=== PATIENT | female | born 1965 | race Two or more races ===

== ENCOUNTER 2024-03-12 17:44 | Emergency (ER) | payer MEDICAID, OTHER ==
[~2024-03-12] VITALS: Ht 160 cm; Wt 61.6 kg
[2024-03-12] MEDS ORDERED: ACET500T58 PO (21:52)
[2024-03-12] MEDS ORDERED: PRED10TA PO (21:52)
[2024-03-12] MEDS ORDERED: AMOX875T4 PO (21:52)
[2024-03-12] MEDS: DexAMETHasone SOD PHOS 10MG/1ML VIAL INJ IM ONE (22:28)
[2024-03-12] MEDS: cefTRIAXone SOD 1,000 MG VL IM ONE (22:28)
[2024-03-12 23:07] VITALS: BP 122/61; PULSE 72; RESP 16; TEMP 98.6; O2SAT 97
== END 2024-03-12 23:11 | disposition home or self-care (01) ==
LOC: ER 17:44
DX: J20.9 Acute bronchitis, unspecified (principal); I10 Essential (primary) hypertension; E11.9 Type 2 diabetes mellitus without complications; E78.5 Hyperlipidemia, unspecified
CPT/HCPCS: 71046; 96372; 99284; J0696; J1100

== ENCOUNTER 2024-06-25 23:52 | Emergency (ER) | payer MEDICAID ==
[~2024-06-25] VITALS: Ht 160 cm; Wt 61.2 kg
[~2024-06-25 23:52] MED LIST: ACET500T58 PO; AMOX875T4 PO; PRED10TA PO
[2024-06-26 02:01] LABS: Urine Bacteria None Seen /hpf (None Seen)
[2024-06-26 02:10] VITALS: BP 127/33; PULSE 57; RESP 13; TEMP 97.5; O2SAT 99
[2024-06-26 02:11] LABS: Basophils # (auto) 0 10 ^3/uL (0-0.2); Basophils % (auto) 0.5 % (0.0-2.0); Eosinophils # (auto) 0.2 10 ^3/uL (0-0.8); Eosinophils % (auto) 2.3 % (0.0-7.0); Hematocrit 39.6 % (36.0-46.0); Hemoglobin 13.3 g/dL (12.2-16.2); Lymphocytes % (auto) 28.6 % (10.0-50.0); Mean Corpuscular Hemoglobin 29.5 pg (28.0-32.0); Mean Corpuscular Hgb Conc. 33.5 g/dL (32.0-36.0); Monocytes # (auto) 0.5 10 ^3/uL (0-1.3); Monocytes % (auto) 7.6 % (0.0-12.0); Neutrophils # (auto) 4.3 10 ^3/uL (1.6-8.6); Nucleated Red Blood Cells % 0.1 %; Platelet Count (auto) 221 10^3/uL (140-450); Red Cell Distribution Width 13.7 % (11.8-14.3); White Blood Cell 7.1 10^3/uL (4.4-10.8)
[2024-06-26 02:16] LABS: Urine Blood 2+ /uL (Negative); Urine Clarity Clear (Clear); Urine Color Light-Yellow (Yellow); Urine Protein, UAD Negative (Negative); Urine Specific Gravity 1.032 (1.001-1.035); Urine Urobilinogen Normal (Negative); Urine WBC 13 /hpf (0 - 5)
[2024-06-26 02:22] LABS: Chloride 106 mmol/L (98-107); Potassium 4.3 mmol/L (3.5-5.1); Sodium 139 mmol/L (136-145)
[2024-06-26 02:23] LABS: Anion Gap 6 (5-15); Carbon Dioxide 27 mmol/L (20-31)
[2024-06-26 02:24] LABS: Calcium 10.3 mg/dL (8.7-10.4)
[2024-06-26 02:28] LABS: BUN/Creatinine Ratio 25.7 (10.0-20.0); Blood Urea Nitrogen 19 mg/dL (9-23); Glucose 197 mg/dL (74-106)
== END 2024-06-26 02:47 | disposition home or self-care (01) ==
LOC: ER 23:52
DX: E11.65 Type 2 diabetes mellitus with hyperglycemia (principal); R31.9 Hematuria, unspecified; I10 Essential (primary) hypertension; E78.5 Hyperlipidemia, unspecified; Z79.899 Other long term (current) drug therapy
CPT/HCPCS: 36415; 80048; 81001; 82962; 85025